=== PATIENT | male | born 1985 | race Caucasian/White ===

== ENCOUNTER 2017-10-11 05:40 | Emergency (ER) | payer OTHER ==
[~2017-10-11] VITALS: Ht 177.8 cm; Wt 70.3 kg
[~2017-10-11 05:40] MED LIST: CEPH500 PO; CLIN300 PO; ERYT.5TO OS; HYDACE5 PO; HYDACE5325 PO; Keflex500 MG PO; MUPI2TO TOP; NAPR550 PO; PENVK500 PO; RXCLIN PO; SULTRIDS PO
[2017-10-11] MEDS ORDERED: SUBOXONE 12 MG1 EACH SL (05:55)
[2017-10-11 06:55] LABS: Calcium, Ionized (POC) 1.16 mmol/L (1.10-1.46); Chloride (POC) 96 mmol/L (98-108); Creatinine (POC) 0.9 mg/dL (0.8-1.3); Glucose (ISTAT POC) 100 mg/dL (70-99); Hemoglobin (POC) 14.3 g/dL (13.5-17.5); Potassium (POC) 4.3 mmol/L (3.5-5.5); Sodium (POC) 134 mmol/L (135-148); Total CO2 (POC) 27 mmol/L (21-32)
== END 2017-10-11 08:05 | disposition home or self-care (01) ==
LOC: ER 05:40
PROVIDERS: Emergency Medicine
DX: R51 Headache (principal); Z88.2 Allergy status to sulfonamides
CPT/HCPCS: 36415; 70450; 80047; 85014; 99284

== ENCOUNTER 2017-11-30 19:25 | Emergency (ER) | payer OTHER ==
[~2017-11-30] VITALS: Ht 177.8 cm; Wt 70.3 kg
[~2017-11-30 19:25] MED LIST changes: +SUBOXONE 12 MG1 EACH SL
[2017-11-30] MEDS ORDERED: KETO120T TOP (20:12)
== END 2017-11-30 20:16 | disposition home or self-care (01) ==
LOC: ER 19:25
DX: F15.10 Other stimulant abuse, uncomplicated (principal); F17.200 Nicotine dependence, unspecified, uncomplicated; Z88.2 Allergy status to sulfonamides; Z79.899 Other long term (current) drug therapy
CPT/HCPCS: 99283

== ENCOUNTER 2019-03-28 21:05 | Emergency (ER) | payer OTHER ==
[~2019-03-28] VITALS: Ht 177.8 cm; Wt 72.6 kg
[~2019-03-28 21:05] MED LIST changes: +KETO120T TOP
[2019-03-28] MEDS ORDERED: Cleocin HCl300 MG PO (21:36)
== END 2019-03-28 21:45 | disposition home or self-care (01) ==
LOC: ER 21:05
DX: L02.416 Cutaneous abscess of left lower limb (principal); L03.116 Cellulitis of left lower limb; Z88.2 Allergy status to sulfonamides; Z79.899 Other long term (current) drug therapy; F17.200 Nicotine dependence, unspecified, uncomplicated
CPT/HCPCS: 99282

== ENCOUNTER 2019-04-01 23:03 | Emergency (ER) | payer OTHER ==
[~2019-04-01] VITALS: Ht 177.8 cm; Wt 72.6 kg
[~2019-04-01 23:03] MED LIST changes: +Cleocin HCl300 MG PO
[2019-04-02] MEDS ORDERED: Budeprion Sr150 MG PO (00:07)
[2019-04-02] MEDS ORDERED: SUBOXONE 8 MG-1 EACH PO (00:07)
[2019-04-02] MEDS ORDERED: TRAZ50 PO (00:08)
[2019-04-02] MEDS ORDERED: Bactrim Ds Tab1 EACH PO (00:54)
[2019-04-02] MEDS ORDERED: CEPH500 PO (00:54)
== END 2019-04-02 01:04 | disposition home or self-care (01) ==
LOC: ER 23:03
DX: L03.116 Cellulitis of left lower limb (principal); L03.113 Cellulitis of right upper limb; L03.811 Cellulitis of head [any part, except face]; N19 Unspecified kidney failure; Z88.2 Allergy status to sulfonamides; Z87.891 Personal history of nicotine dependence; Z79.899 Other long term (current) drug therapy
CPT/HCPCS: 87070; 87077; 87147; 87186; 87205; 99283

== ENCOUNTER 2020-11-03 17:25 | Emergency (ER) | payer OTHER ==
[~2020-11-03] VITALS: Ht 177.8 cm; Wt 68.0 kg
[~2020-11-03 17:25] MED LIST changes: +Bactrim Ds Tab1 EACH PO; +Budeprion Sr150 MG PO; +SUBOXONE 8 MG-1 EACH PO; +TRAZ50 PO
[2020-11-03] MEDS ORDERED: Keflex500 MG PO (17:49)
== END 2020-11-03 18:00 | disposition home or self-care (01) ==
LOC: ER 17:25
DX: S00.01XA Abrasion of scalp, initial encounter (principal); L08.9 Local infection of the skin and subcutaneous tissue, unspecified; X58.XXXA Exposure to other specified factors, initial encounter; Z88.2 Allergy status to sulfonamides; Z87.891 Personal history of nicotine dependence; Z79.899 Other long term (current) drug therapy
CPT/HCPCS: 99282; A9270

== ENCOUNTER → 2024-09-07 | Outpatient (CLI) | payer OTHER ==
[~2024-09-07] MED LIST changes: +CLINDAMYCIN HC300 MG PO
== END ==
LOC: LAB 18:46 → LAB SHORT 18:46
DX: R35.0 Frequency of micturition (principal)
CPT/HCPCS: 87086